=== PATIENT | female | born 1990 | race Caucasian/White ===

== ENCOUNTER 2022-01-20 21:22 | Emergency (ER) | payer BC, SELFPAY ==
[2022-01-20 21:31] VITALS: BP 150/80; PULSE 79; RESP 21; TEMP 36.5; O2SAT 98; BMI 23.0
--- NOTE | 2022-01-20 22:17 | PC.NURSE ---
I asked patient to get a urine sample. patient ambulated to the bathroom with steady gait but was unsuccessful. patient back in bed. provider aware.
--- NOTE | 2022-01-20 22:18 | ED.ABDPAIN ---
HPI - Abdominal Pain General Chief Complaint: Abdominal Pain Stated Complaint: Pelvic Pain Time Seen by Provider: 01/20/22 22:13 Source: patient Mode of arrival: Ambulatory History of Present Illness HPI narrative: 31-year-old female nonsmoker with extensive history of ovarian troubles including multiple surgeries for ovarian torsion when she still lived in [place] presents with her significant other and a chief complaint of significant and worsening left lower quadrant pain over the course of the day. She denies any fever or chills but has had nausea, poor appetite multiple episodes of vomiting and severe pain. The pain is persistent and is worse when she moves and improves with rest. She denies runny nose, sore throat or cough. She is had no chest pain or shortness of breath. She denies any vaginal bleeding or discharge. She states that she has an inability to urinate over the same timeframe. She had been seen and evaluated earlier in the day at an outside facility and had a very thorough evaluation including ultrasound that shows a left side ovarian cyst without evidence of torsion as well as urinary retention. She had a catheter placed but it was removed prior to her discharge and over the course of the day she is had ongoing difficulty producing urine. She had been given anti-inflammatories and pain meds but states they are not helping hence decision to come see us. Related Data Previous Rx's Medication Instructions Recorded ciprofloxacin HCl 500 mg tablet 500 mg PO Q12H #20 tabs 01/21/22 ketorolac 10 mg tablet 10 mg PO Q6H PRN pain #14 tabs 01/21/22 metronidazole 500 mg tablet 500 mg PO Q8H 10 days #30 tabs 01/21/22 ondansetron 4 mg disintegrating 4 mg PO TID-QID PRN nausea and 01/21/22 tablet vomiting #10 tabs oxycodone 5 mg tablet 5 mg PO Q4-6H PRN pain #10 tabs 01/21/22 Allergies Allergy/AdvReac Type Severity Reaction Status Date / Time amoxicillin [From Augmentin] Allergy Verified 01/20/22 22:46 clavulanic acid Allergy Verified 01/20/22 22:46 [From Augmentin] fentanyl Allergy Verified 01/20/22 22:46 hexachlorophene Allergy Verified 01/20/22 22:46 [From Septisol] povidone-iodine Allergy Verified 01/20/22 22:46 [From Septisol] Review of Systems Review of Systems Narrative: GENERAL: See HPI HEENT: Denies sinus pain, ear pain, sore throat, difficulty swallowing, dizziness. RESPIRATORY: Denies dyspnea, cough, wheezing, hemoptysis, sputum. CARDIOVASCULAR: Denies chest pain, palpitations, orthopnea, edema, GASTROINTESTINAL: See HPI : See HPI MUSCULOSKELETAL: denies weakness, joint pain, or bony pain SKIN: Denies rash, skin lesions, or other NEUROLOGIC: Denies weakness, headache, numbness, change in speech, confusion, seizures, incoordination. PSYCHIATRIC: No concerning psychosocial issues. 12 point review of systems is negative except for those stated above Patient History Social History Smoking Status: Never smoker Smoking Status: Never smoker alcohol intake frequency: 0-2 drinks per day Substance Use Type: does not use Exam Narrative Exam Narrative: GENERAL: [31] year old patient appears stated age. Well-developed patient, in mild distress. Obviously uncomfortable, in pain and rubbing her lower abdomen HEAD: Atraumatic. Normocephalic. EYES: Pupils equal round and reactive. Extraocular motions intact. No scleral icterus. No injection or drainage. ENT: Nose without bleeding, purulent drainage. Throat without erythema, tonsillar hypertrophy or exudate. Airway patent. NECK: Trachea midline. Non tender CARDIOVASCULAR: Regular rate and rhythm without murmurs, gallops, or rubs. RESPIRATORY: Clear to auscultation. Breath sounds equal bilaterally. No wheezes, rales, or rhonchi. GASTROINTESTINAL: Abdomen soft, tender in the left lower quadrant and suprapubic region with localized guarding, remainder of abdomen is soft and nontender with bowel sounds present, nondistended. EXTREMITIES: No edema or joint tenderness. BACK: Nontender without deformity or crepitance. No flank tenderness. NEURO: AOx3. SKIN: No rash or erythema of visible areas Initial Vital Signs Initial Vital Signs: Vital Signs Temperature 97.7 F 01/20/22 21:31 Pulse Rate 79 01/20/22 21:31 Respiratory Rate 21 01/20/22 21:31 Blood Pressure 150/80 H 01/20/22 21:31 Pulse Oximetry 98 01/20/22 21:31 Oxygen Delivery Method 01/20/22 21:31 Course Course Course Narrative: Patient unable to produce urine, bedside ultrasound notes greater than 300 cc of urine Orders Ordered: ED Orders 01/20/22 22:25 US pelvic complete Stat 01/20/22 22:45 VBG [Venous Blood Gas] Stat 01/20/22 22:46 Complete Blood Count AUTO DIFF Stat Comprehensive Metabolic Panel Stat Ketones (Beta-Hydroxybutyrate) Stat Lipase Stat 01/20/22 23:14 Test Urine Stat Urinalysis and Microscopic Stat 01/20/22 23:31 CT abdomen pelvis w con Stat Discontinued Medications Hydromorphone HCl (Hydromorphone 0.5 Mg Inj) 0.5 mg IV NOW ONE Stop: 01/20/22 22:26 Last Admin: 01/20/22 22:48 Dose: 0.5 mg Documented By: TUCKER Hydromorphone HCl (Hydromorphone 0.5 Mg Inj) 0.5 mg IV NOW ONE Stop: 01/21/22 01:04 Last Admin: 01/21/22 01:05 Dose: 0.5 mg Documented By: HANY Hydromorphone HCl (Hydromorphone 0.5 Mg Inj) 0.5 mg IV NOW ONE Stop: 01/21/22 02:04 Last Admin: 01/21/22 02:12 Dose: 0.5 mg Sodium Chloride (Normal Saline 0.9%) 1,000 mls @ 1,000 mls/hr IV BOLUS ONE Stop: 01/20/22 23:24 Last Admin: 01/20/22 22:50 Dose: Not Given Documented By: TUCKER Lactated Ringer's (Lactated Ringers) 1,000 mls @ 1,000 mls/hr IV BOLUS ONE Stop: 01/20/22 23:24 Last Infusion: 01/20/22 23:21 Dose: 1,000 mls/hr Documented By: Infusion: 01/20/22 22:59 Dose: 0 mls/hr Documented By: Admin: 01/20/22 22:49 Dose: 1,000 mls/hr Documented By: TUCKER Lactated Ringer's (Lactated Ringers) 1,000 mls @ 1,000 mls/hr IV BOLUS ONE Stop: 01/21/22 01:04 Last Admin: 01/21/22 01:05 Dose: 1,000 mls/hr Documented By: EB Ondansetron HCl (Ondansetron 4 Mg/2 Ml Inj) 4 mg IV NOW ONE Stop: 01/20/22 22:26 Last Admin: 01/20/22 22:48 Dose: 4 mg Documented By: TUCKER Ondansetron HCl (Ondansetron 4 Mg Odt Prepack) 1 bottle MISC SEEINSTR ONE Stop: 01/21/22 02:04 Last Admin: 01/21/22 02:12 Dose: 1 bottle Oxycodone/Acetaminophen (Oxycodone/Apap 5/325 Prepack) 1 bottle MISC SEEINSTR ONE Stop: 01/21/22 02:04 Last Admin: 01/21/22 02:12 Dose: 1 bottle Consultations Consultation #1: Discussed with on-call spout worker early in the presentation, we sure the opinion that a repeat ultrasound and labs are pertinent as well as CT with IV contrast following. He took her contact information and provided there is no surgical finding tonight his office will reach out tomorrow and get her in for prompt follow-up Vital Signs Vital signs: Vital Signs - 8 hr 01/20/22 21:31 01/20/22 22:59 01/20/22 23:00 Temperature 97.7 F Pulse Rate 79 74 76 Respiratory Rate 21 Blood Pressure 150/80 H Pulse Oximetry 98 99 99 Oxygen Delivery Method Room Air MDM - Abdominal Pain Lab Data Result diagrams: 01/20/22 22:46 01/20/22 22:46 Labs: Lab Results 01/20/22 01/20/22 01/20/22 Range/Units 22:45 22:46 22:46 WBC 8.2 (4.5-11.0) X10^3/uL RBC 4.16 (4.0-5.2) X10^6/uL Hgb 12.6 (12.0-16.0) g/dL Hct 37.4 (36-46) % MCV 90.0 (80-100) fL MCH 30.4 (26-34) PG MCHC 33.7 (30-36) % RDW 13.4 (11.6-14.8) % Plt Count 306 (150-400) X10^3/uL Neut % (Auto) 76.2 H (50-75) % Lymph % (Auto) 18.2 L (25-40) % Emanuel % (Auto) 4.4 (3-14) % Eos % (Auto) 0.6 L (2-4) % Baso % (Auto) 0.6 (0-2) % Neut # (Auto) 6200 (8175-5369) /uL Lymph # (Auto) 1500 (4493-9542) /uL Emanuel # (Auto) 400 (0-900) /uL Eos # (Auto) 100 (0-450) /uL Baso # (Auto) 100 (0-100) /uL VBG pH 7.32 L (7.33-7.43) VBG pCO2 39.7 L (45-50) mmHg VBG pO2 25 L (35-45) mmHg VBG HCO3 20 L (23-28) mmol/L VBG Total CO2 22 L (24-29) mmol/L VBG O2 Saturation 41 L (70-75) % VBG Base Excess -6.0 L (0-4) mmol/L Sodium (137-145) mmol/L Potassium (3.4-5.1) mmol/L Chloride (98-107) mmol/L Carbon Dioxide (22-32) mmol/L BUN (7-17) mg/dL Creatinine (0.52-1.04) mg/dL Estimated GFR (>60) mL/min BUN/Creatinine Ratio (6-22) Glucose (70-100) mg/dL Calcium (8.4-10.2) mg/dL Total Bilirubin (0.2-1.3) mg/dL AST (14-36) IU/L ALT (<35) IU/L Alkaline Phosphatase (38-126) U/L Total Protein (6.3-8.2) g/dL Albumin (3.5-5.0) g/dL Globulin (1.7-4.1) g/dL Albumin/Globulin Ratio (1.0-2.8) Lipase (23-300) U/L Urine Color Urine Appearance Urine pH (4.5-8.0) Ur Specific Danielson (1.000-1.035) Urine Protein (Negative) Urine Glucose (UA) (Negative) g/dL Urine Ketones (NEGATIVE) Urine Occult Blood (Negative) Urine Nitrate (Negative) Urine Bilirubin (NEGATIVE) Urine Urobilinogen (0.2) E.U./dL Ur Leukocyte Esterase (NEGATIVE) Urine RBC (0-5/HPF) Urine WBC (0-5/HPF) Ur Squamous Epith Cells (0-5/HPF) Urine Bacteria (None) Hyaline Casts (None) Urine Mucus (Negative) Ur Culture Indicated? Urine Test (Negative) Ketones 5.76 H (<0.27) mmol/L 01/20/22 01/20/22 01/20/22 Range/Units 22:46 23:14 23:14 WBC (4.5-11.0) X10^3/uL RBC (4.0-5.2) X10^6/uL Hgb (12.0-16.0) g/dL Hct (36-46) % MCV (80-100) fL MCH (26-34) PG MCHC (30-36) % RDW (11.6-14.8) % Plt Count (150-400) X10^3/uL Neut % (Auto) (50-75) % Lymph % (Auto) (25-40) % Emanuel % (Auto) (3-14) % Eos % (Auto) (2-4) % Baso % (Auto) (0-2) % Neut # (Auto) (2808-5175) /uL Lymph # (Auto) (4735-8311) /uL Emanuel # (Auto) (0-900) /uL Eos # (Auto) (0-450) /uL Baso # (Auto) (0-100) /uL VBG pH (7.33-7.43) VBG pCO2 (45-50) mmHg VBG pO2 (35-45) mmHg VBG HCO3 (23-28) mmol/L VBG Total CO2 (24-29) mmol/L VBG O2 Saturation (70-75) % VBG Base Excess (0-4) mmol/L Sodium 135 L (137-145) mmol/L Potassium 4.1 (3.4-5.1) mmol/L Chloride 103 (98-107) mmol/L Carbon Dioxide 19 L (22-32) mmol/L BUN 6 L (7-17) mg/dL Creatinine 0.58 (0.52-1.04) mg/dL Estimated GFR > 60 (>60) mL/min BUN/Creatinine Ratio 10.3 (6-22) Glucose 123 H (70-100) mg/dL Calcium 8.9 (8.4-10.2) mg/dL Total Bilirubin 0.6 (0.2-1.3) mg/dL AST 23 (14-36) IU/L ALT 11 (<35) IU/L Alkaline Phosphatase 34 L (38-126) U/L Total Protein 6.7 (6.3-8.2) g/dL Albumin 4.3 (3.5-5.0) g/dL Globulin 2.4 (1.7-4.1) g/dL Albumin/Globulin Ratio 1.8 (1.0-2.8) Lipase 42 (23-300) U/L Urine Color Yellow Urine Appearance Clear Urine pH 5.0 (4.5-8.0) Ur Specific Danielson >=1.030 H (1.000-1.035) Urine Protein 1+ H (Negative) Urine Glucose (UA) Negative (Negative) g/dL Urine Ketones 3+ H (NEGATIVE) Urine Occult Blood Negative (Negative) Urine Nitrate Negative (Negative) Urine Bilirubin Negative (NEGATIVE) Urine Urobilinogen 0.2 (0.2) E.U./dL Ur Leukocyte Esterase Negative (NEGATIVE) Urine RBC None seen (0-5/HPF) Urine WBC 0-1/hpf (0-5/HPF) Ur Squamous Epith Cells 1-5 /hpf (0-5/HPF) Urine Bacteria Occasional (0-1) (None) Hyaline Casts 0-1/lpf (None) Urine Mucus 1+ H (Negative) Ur Culture Indicated? Cult not indicated Urine Test Negative (Negative) Ketones (<0.27) mmol/L Imaging Data US - DISPLAYER: Radiologist's Impression: [address] [id number] ReportSigned Patient: Mattie Caba JMR#: [id number]: 05/28/1996Acct:[id number]/Sex: 25 / FDate of Service: 01/20/22Loc: EDAccession Number: [id number] Procedure: US abdomen limited Ordering Provider: Darell Rose D.O. PROCEDURE: US ABDOMEN LIMITED INDICATIONS: severe epigastric pain, radiation to back TECHNIQUE: Real-time scanning was performed of the abdominal and retroperitoneal organs, with image documentation. COMPARISON: None. FINDINGS: Liver: Liver is enlarged and measures 22.6 cm in length. Diffusely increased liver parenchymal echotexture is seen. No discrete hepatic lesion. Gallbladder: There is no gallstone. No gallbladder wall thickening or pericholecystic fluid. No sonographic Frances sign. Biliary ducts: Intrahepatic bile ducts are non-dilated. Extrahepatic bile duct caliber measures 5.6 mm. Normal is 6-7 mm or less in diameter, or 10 mm or less post-cholecystectomy. Pancreas: Visualized portions of the pancreas are sonographically normal. IMPRESSION: Normal appearing gallbladder. No cholelithiasis or acute cholecystitis. No biliary ductal dilatation. Hepatomegaly and hepatic steatosis. No discrete hepatic lesion. Dictated by: Ismael Nguyen M.D. on 01/20/2022 at 23:12 Approved by: Ismael Nguyen M.D. on 01/20/2022 at 23:14 CT scan - abdomen/pelvis: Radiologist's Impression: 36 ? Darell Rose, DO [facility] Routine Call Back Main ED ?6? My List ?6? Waiting ?0? Surge ED ?0? R04? Dwaine? Ros? 31 F? With Doctor? 4h 25m? 3-Urgent? ?? Abdominal Pain? Pelvic Pain? ?? 01/20/22 22:13? REG ER? Draft? Darell Sommer S Order BP Pulse 76 Resp Temp O2 Sat 99% ... ?Urinalysis... ?Complete B... ?Venous Blo... ?Chem ?Ketones (B... Lipase Sta... Imaging MAR NPO Diet Cardiac mo... POC/DELFINA R05? Dawkins? Raya? 64 F? Pending Xfer to Other Facility? 7h 50m? 2-Emergent? ?? GI Bleed? ABD distended, Bleeding issues, ABD PAIN? ?? 01/20/22 18:08? REG ER? Draft? Darell Sommer Tj Roberts (mom)-[phone]-patient okayed to give information to if she calls for an update Order BP 117/72 Pulse 85 Resp Temp O2 Sat COVID19 -N... ?Chem ?Lactate (L... ?Magnesium ... ?Prothrombi... ?Complete B... ?Lipase Sta... Type and S... Imaging ?Urinalysis... ?Hemoglobin... Albumin Manny... Cell Count... Glucose Manny... LDH Body F... Total Prot... Amylase Manny... Microbiolo... MAR POC/DELFINA EKG-12 Emily... R07? Pedro Pinedaree? Zoila? 18 F? With Doctor? 4h 14m? 3-Urgent? ?? Abdominal Pain? ABD PAIN, HX OVARIAN CYST? C19S/S? 01/20/22 22:31? REG ER? Draft? Darell Butler CT abd/pel if neg then pelvic TRAMAINE 0027 Order BP 123/68 Pulse 91 Resp 18 Temp O2 Sat 98% (RA) ?Complete B... ?Chem Lipase Sta... POC/DELFINA Imaging EKG-12 Emily... Cardiac mo... NPO Diet R08? Richard? Chalo? 85 M? Boarding? 21h 18m? 2-Emergent? ?? Shortness of Breath/Dyspnea? SOB? ISO, C19S/S, Sign Out? 01/20/22 04:29? REG ER? Draft? Darell Butler Check with Pop after 0800 01/21 (no bed tonight) No longer on warfarin BG 185 3L O2 applied Order BP Pulse 54 Resp 24 Temp O2 Sat 98% ?COVID19 -N... ?Complete B... ?Chem ?NT-proBNP ... ?Troponin &... Imaging ?Arterial B... Procalcito... Lactate (L... ?Arterial B... ?Arterial B... ?Arterial B... ?Arterial B... ?Prothrombi... MAR EKG-12 Emily... Microbiolo... BiPAP Vent... Renal Diet RT Consult... R10? Severino? Trevin Shin? 28 M? With Doctor? 42m? 2-Emergent? ?? Psychiatric Symptoms? mental crisis/private/wants to speak w/dr? ?? 01/21/22 01:09? REG ER? Draft? Darell Rose Order BP 135/85 Pulse 111 Resp 22 Temp 98.4 F O2 Sat 98% (RA) Ethanol (E... Complete B... Chem Urine Drug... EKG-12 Emily... POC/DELFINA COVID19 -N... R13? Kayla? Lexus? 60 F? With Doctor? 5h 22m? 3-Urgent? ?? Psychiatric Symptoms? Emotional breakdown? ?? 01/20/22 21:52? REG ER? Draft? Darell Rose [employer] Order BP 147/90 Pulse 118 Resp 22 Temp 98.6 F O2 Sat 93% (RA) ?Complete B... ?Ethanol (E... ?Chem ?Urine Drug... POC/DELFINA MAR Consult to... Imaging - CT abdomen pelvis w con; US pelvic complete Ros Isidro??31??F??1990 ? Allergy/Adv: amoxicillin, clavulanic acid, fentanyl, hexachlorophene, povidone-iodine (More??) Close Results Imaging ACTIVITY DATE EXAM STATUS AUTHOR 01/20/22 23:31 Abdomen/Pelvis CT Signed Ismael Nguyen 01/20/22 22:25 Pelvis Ultrasound Signed Ismael Nguyen Imaging Reports Close Abdomen/Pelvis CT (Signed) Ismael Nguyen - 01/20/22 Pelvis Ultrasound (Signed) Ismael Nguyen - 01/20/22 Launch?[place] [address] CT Scan Report Signed Patient: Ros Isidro MR#: [id number] : 1990 Acct:[id number] Age/Sex: 31 / F Date of Service: 01/20/22 Loc: ED Accession Number: [id number] ?? Procedure: CT abdomen pelvis w con Ordering Provider: Darell Rose D.O. PROCEDURE:? CT ABDOMEN PELVIS W CON ? INDICATIONS:? severe LLQ pain ? TECHNIQUE:? After the administration of intravenous contrast, axial sections acquired from the lung bases to the pubic symphysis.? Coronal and sagittal reformats were performed.? For radiation dose reduction, the following was used:? automated exposure control, adjustment of mA and/or kV according to patient size.? ? COMPARISON:? [facility], , PELVIC COMPLETE, 01/20/2022, 22:54. ? FINDINGS:? Image quality:? Excellent.? ? Lung bases:? Unremarkable. Heart:? No significant findings. ? ABDOMEN: Liver:? Unremarkable.? ? Gallbladder:? A surgical clip is seen in the region of gallbladder fossa although there appears to be a normal appearing gallbladder.? Clinical correlation is recommended.? Biliary ducts:? Unremarkable.? ? Pancreas:? Unremarkable.? ? Spleen:? Unremarkable.? ? Adrenal Glands:? Unremarkable.? ? Kidneys and Ureters:? Unremarkable.? ? ? Stomach and Bowel:? There is no bowel obstruction.? Questionable gastric and proximal small bowel wall thickening in upper to mid abdomen is seen.? There is also suggestion of descending colon wall thickening with narrowing of the lumen and mild pericolonic fat stranding.? Appendix is visualized in right lower quadrant abdomen and is normal in size and appearance.? Significant fecal stasis in ascending colon and transverse colon is noted.? No discrete abscess collection.? Peritoneum:? Small amount of free fluid is noted in abdomen and pelvis.? No gross free air. ? Ventral Wall: ? No hernias.? Abdominal Nodes:? No retroperitoneal or mesenteric adenopathy by size criteria.? Vessels:? Aorta and inferior vena cava are normal in size.? ? PELVIS: Pelvic Organs:? Enlarged left ovary is again seen which was also noted on ultrasound examination.? Suggestion of bilateral ovarian follicles are noted.? Uterus is within normal limits..? ? Bladder:? Donis catheter is seen within bladder lumen, bladder wall thickness is normal. Pelvic Nodes: No enlarged lymph nodes.? Miscellaneous: No hernias are seen. ? ? ? Bones:? No suspicious bony lesion.? No acute vertebral body compression fracture. ? ? IMPRESSION:? 1.? Descending colon wall thickening and edema concerning for infectious or inflammatory colitis.? Questionable gastric and proximal small bowel wall thickening, low-grade gastroenteritis cannot be excluded.? Small amount of free fluid in abdomen and pelvis.? No gross free air. 2. Enlarged left ovary compared to right side which was also seen on ultrasound.? Bilateral ovarian follicles.? No evidence of ovarian torsion is noted on earlier pelvic ultrasound study.? Ultrasound follow-up is recommended. 3. Surgical clip is seen in gallbladder fossa although there is suggestion of a normal appearing gallbladder.? Clinical correlation is recommended.? No biliary ductal dilatation.? ? ? Dictated by: Ismael Nguyen M.D. on 01/21/2022 at 1:26 ? ? Approved by: Ismael Nguyen M.D. on 01/21/2022 at 1:38 ? MDM Narrative Medical decision making narrative: Multiple etiologies for patient's symptoms considered include, but not limited to: [Ovarian torsion (given her history) versus ovarian cyst versus urinary retention versus other Patient has had two pelvic US demonstrating good flow and no evidence of torsion. Patient has had donis placed for post void residual of >300mL CT demonstrates colitis. Patient's symptoms improved over duration of stay with above-stated therapies. History, physical exam, labs, imaging, and response to therapies have been reassuring. Findings and discharge diagnosis discussed with patient/family followed by verbalization of understanding Return precautions discussed with patient/family whom verbalize understanding. Pain has been well controlled and patient is tolerating oral hydration. Discharge Plan Departure Patient Disposition: Home Clinical Impression: Colitis, Acute urinary retention, Ovarian cyst Instructions: DI for Ovarian Cyst, DI for Urinary Retention in Women, DI for Colitis Activity Restrictions/Additional Instructions: *You have been diagnosed with [left lower quadrant abdominal pain due to colitis, urinary retention and ovarian cyst. There is no evidence of ovarian torsion based on our ultrasound or the 1 earlier in the day] *What to do: *Please continue to take your regular medications as directed. [x ] New medication prescriptions sent to your pharmacy: [ [facility] in [place]] FOR URINARY RETENTION -please contact local urology (Dr. Zambrano and Dr. Landry) at the number listed below. Please call their office tomorrow and let them know you were seen in the emergency department and we ask that he be seen in follow-up FOR OVARIAN PAIN -please contact Dr. Lozada, who is the asic engineer on-call [facility], his contact information is listed below. Please contact the office tomorrow, let them know you were seen in the emergency department and we would like you to be seen in follow-up FOR OVERALL MANAGEMENT AND COLITIS - *Please follow up with your primary care provider in 2-3 days, call for an appointment. Let them know you were seen in the Emergency Department and that we ask that you be seen in follow up. We will electronically transmit a record of today's note if your PCP is in our system *Please consider a clear liquid diet for the next 24-48 hours and then slowly advance to regular as tolerated. Also, try to avoid alcohol, nicotine, caffeine, spicy, acidic or fatty foods as this may worsen your symptoms *If you do not have a primary care provider please contact the [facility] Resource line at [phone]. They will ask some questions about your medical history and help get you set up with a doctor in the community. *Return to Emergency Department if you should have any new, worsening or concerning symptoms, such as [fever greater than 101 F, shaking chills, worsening pain, persistent vomiting or other bothersome symptoms] Prescriptions: New ketorolac 10 mg tablet 10 mg PO Q6H PRN (Reason: pain) Qty: 14 0RF ondansetron 4 mg tablet,disintegrating 4 mg PO TID-QID PRN (Reason: nausea and vomiting) Qty: 10 0RF oxycodone 5 mg tablet 5 mg PO Q4-6H PRN (Reason: pain) Qty: 10 0RF ciprofloxacin HCl 500 mg tablet 500 mg PO Q12H Qty: 20 0RF metronidazole 500 mg tablet 500 mg PO Q8H 10 Days Qty: 30 0RF Referrals: Margaret Zambrano MD [Physician] - Hector Lozada MD [Physician] -
--- NOTE | 2022-01-20 22:25 | DI.US.S_ITS ---
PROCEDURE: US PELVIC COMPLETE INDICATIONS: LLQ pain TECHNIQUE: Real-time scanning was performed of the pelvic organs, with image documentation. Additional endovaginal scanning was necessary due to incomplete visualization of the adnexal and endometrial structures by transabdominal scanning. COMPARISON: None. FINDINGS: Uterus: Uterus is anteverted and normal in size at 8.2 x 2.5 x 4.4 cm. The myometrium is homogeneous. No discrete uterine fibroids. The endometrium measures 7.8 mm combined thickness. No gross endometrial mass or fluid is seen. Ovaries: The right ovary measures 4 x 2.5 x 2.2 cm, with a calculated ovarian volume of 11.4 cc. The left ovary measures 6.3 x 5.1 x 6.0 cm, with a calculated ovarian volume of 100.2 cc. The ovaries have a normal sonographic appearance. Less than 12 follicles can be seen in each ovary. No adnexal masses are seen. Normal arterial and venous flow is seen in bilateral ovaries on color Doppler images. Other: No pathologic free abdominal or pelvic fluid. IMPRESSION: 1. No evidence of ovarian torsion. No solid appearing ovarian lesion. 2. Normal appearing uterus and endometrium. We strive to produce accurate, complete, and clear reports of imaging services. To assist us in improving patient care, this report was composed using standard report templates and voice recognition software. Therefore, it may contain abnormal punctuation, insertions and/or omissions. Occasional wrong-word or sound-alike substitutions may occur. Though we review the report and make efforts to correct it, we do recommend that the report be read carefully in proper context to recognize any text inaccuracies. Dictated by: Ismael Nguyen M.D. on 01/20/2022 at 23:37 Approved by: Ismael Nguyen M.D. on 01/20/2022 at 23:38
[2022-01-20] MEDS: ONDANSETRON 4 MG/2 ML INJ IV (22:48)
[2022-01-20] MEDS: HYDROMORPHONE 0.5 MG INJ IV (22:48)
[2022-01-20] MEDS: LACTATED RINGERS 1,000 ML 1000 ML IV (22:49)
[2022-01-20 22:57] LABS: Add Manual Diff / Slide Review NO; Basophils Absolute Auto 100 /uL (0-100); Basophils Percent Auto 0.6 % (0-2); Eosinophils Absolute Auto 100 /uL (0-450); Eosinophils Percent Auto 0.6 % (2-4); Hematocrit 37.4 % (36-46); Hemoglobin 12.6 g/dL (12.0-16.0); Lymphocytes Absolute Auto 1500 /uL (1100-4500); Lymphocytes Percent Auto 18.2 % (25-40); Mean Corpuscular HGB Conc 33.7 % (30-36); Mean Corpuscular Hemoglobin 30.4 PG (26-34); Monocytes Absolute Auto 400 /uL (0-900); Monocytes Percent Auto 4.4 % (3-14); Neutrophils Absolute Auto 6200 /uL (1500-7000); Neutrophils Percent Auto 76.2 % (50-75); Platelet Count 306 X10^3/uL (150-400); Red Blood Cell Count 4.16 X10^6/uL (4.0-5.2); Red Cell Distribution Width 13.4 % (11.6-14.8); White Blood Cell Count 8.2 X10^3/uL (4.5-11.0)
[2022-01-20 22:59] VITALS: PULSE 74; O2SAT 99
[2022-01-20 23:00] VITALS: PULSE 76; O2SAT 99
[2022-01-20 23:03] LABS: HCO3 VBG 20 mmol/L (23-28); Oxygen Saturation VBG 41 % (70-75); PCO2 VBG 39.7 mmHg (45-50); PO2 VBG 25 mmHg (35-45); Total CO2 VBG 22 mmol/L (24-29); pH VBG 7.32 (7.33-7.43)
[2022-01-20 23:10] LABS: Alanine Aminotransferase 11 IU/L (<35); Albumin 4.3 g/dL (3.5-5.0); Albumin Globulin Ratio 1.8 (1.0-2.8); Alkaline Phosphatase 34 U/L (38-126); Aspartate Aminotransferase 23 IU/L (14-36); BUN Creatinine Ratio 10.3 (6-22); Bilirubin Total 0.6 mg/dL (0.2-1.3); Blood Urea Nitrogen 6 mg/dL (7-17); Calcium 8.9 mg/dL (8.4-10.2); Carbon Dioxide 19 mmol/L (22-32); Chloride 103 mmol/L (98-107); Estimated Glomerular Filt Rate > 60 mL/min (>60); Globulin 2.4 g/dL (1.7-4.1); Glucose 123 mg/dL (70-100); HEMOLYSIS < 15 (0-50); Lipase 42 U/L (23-300); Potassium 4.1 mmol/L (3.4-5.1); Sodium 135 mmol/L (137-145); Total Protein 6.7 g/dL (6.3-8.2)
[2022-01-20 23:13] LABS: Ketones (Beta-Hydroxybutyrate) 5.76 mmol/L (<0.27)
[2022-01-20 23:30] VITALS: PULSE 74; O2SAT 97
[2022-01-20 23:30] LABS: Pregnancy Test Urine Negative (Negative)
[2022-01-20 23:31] LABS: Appearance Urine UA CLEAR; Bilirubin Urine UA NEGATIVE (NEGATIVE); Color Urine UA YELLOW; Glucose Urine UA NEGATIVE (Negative); Ketones Urine UA 3+ (NEGATIVE); Leukocyte Esterase Urine UA NEGATIVE (NEGATIVE); Nitrite Urine UA NEGATIVE (Negative); Occult Blood Urine UA NEGATIVE (Negative); Protein Urine UA 1+ (Negative); Specific Gravity Urine UA >=1.030 (1.000-1.035); Urobilinogen Urine UA 0.2 E.U./dL (0.2)
--- NOTE | 2022-01-20 23:31 | DI.CT.S_ITS ---
PROCEDURE: CT ABDOMEN PELVIS W CON INDICATIONS: severe LLQ pain TECHNIQUE: After the administration of intravenous contrast, axial sections acquired from the lung bases to the pubic symphysis. Coronal and sagittal reformats were performed. For radiation dose reduction, the following was used: automated exposure control, adjustment of mA and/or kV according to patient size. COMPARISON: [facility], US, US PELVIC COMPLETE, 01/20/2022, 22:54. FINDINGS: Image quality: Excellent. Lung bases: Unremarkable. Heart: No significant findings. ABDOMEN: Liver: Unremarkable. Gallbladder: A surgical clip is seen in the region of gallbladder fossa although there appears to be a normal appearing gallbladder. Clinical correlation is recommended. Biliary ducts: Unremarkable. Pancreas: Unremarkable. Spleen: Unremarkable. Adrenal Glands: Unremarkable. Kidneys and Ureters: Unremarkable. Stomach and Bowel: There is no bowel obstruction. Questionable gastric and proximal small bowel wall thickening in upper to mid abdomen is seen. There is also suggestion of descending colon wall thickening with narrowing of the lumen and mild pericolonic fat stranding. Appendix is visualized in right lower quadrant abdomen and is normal in size and appearance. Significant fecal stasis in ascending colon and transverse colon is noted. No discrete abscess collection. Peritoneum: Small amount of free fluid is noted in abdomen and pelvis. No gross free air. Ventral Wall: No hernias. Abdominal Nodes: No retroperitoneal or mesenteric adenopathy by size criteria. Vessels: Aorta and inferior vena cava are normal in size. PELVIS: Pelvic Organs: Enlarged left ovary is again seen which was also noted on ultrasound examination. Suggestion of bilateral ovarian follicles are noted. Uterus is within normal limits.. Bladder: [place] catheter is seen within bladder lumen, bladder wall thickness is normal. Pelvic Nodes: No enlarged lymph nodes. Miscellaneous: No hernias are seen. Bones: No suspicious bony lesion. No acute vertebral body compression fracture. IMPRESSION: 1. Descending colon wall thickening and edema concerning for infectious or inflammatory colitis. Questionable gastric and proximal small bowel wall thickening, low-grade gastroenteritis cannot be excluded. Small amount of free fluid in abdomen and pelvis. No gross free air. 2. Enlarged left ovary compared to right side which was also seen on ultrasound. Bilateral ovarian follicles. No evidence of ovarian torsion is noted on earlier pelvic ultrasound study. Ultrasound follow-up is recommended. 3. Surgical clip is seen in gallbladder fossa although there is suggestion of a normal appearing gallbladder. Clinical correlation is recommended. No biliary ductal dilatation. Dictated by: Ismael Nguyen M.D. on 01/21/2022 at 1:26 Approved by: Ismael Nguyen M.D. on 01/21/2022 at 1:38
[2022-01-20 23:35] LABS: Bacteria Urine Occasional (0-1); Hyaline Casts Urine 0-1/LPF; Mucus Urine 1+ (Negative); RBC Urine None Seen (0-5/HPF); Squamous Epithelial Cell Urine 1-5 /HPF (0-5/HPF); WBC Urine 0-1/HPF (0-5/HPF)
[2022-01-20 23:36] LABS: Culture Indicated Urine Cult Not Indicated
[2022-01-21] VITALS: PULSE 73; O2SAT 100
--- NOTE | 2022-01-21 01:00 | PC.NURSE ---
Pt IV infiltrated. Multiple attempts made for new IV placement. IV placed on 4th attempt. Pt CT was obtained, pt asking for pain medications.
[2022-01-21] MEDS: LACTATED RINGERS 1,000 ML 1000 ML IV (01:05)
[2022-01-21] MEDS: HYDROMORPHONE 0.5 MG INJ IV ×2 (01:05→02:12)
[2022-01-21 01:08] VITALS: PULSE 103; RESP 19; O2SAT 97
[2022-01-21 01:30] VITALS: BP 137/81; PULSE 94; RESP 16; O2SAT 100
[2022-01-21 02:00] VITALS: PULSE 92; RESP 20; O2SAT 100
[2022-01-21] MEDS: OXYCODONE/APAP 5/325 PREPACK 1 BOTTLE MISC (02:12)
[2022-01-21] MEDS: ONDANSETRON 4 MG ODT PREPACK 1 BOTTLE MISC (02:12)
== END 2022-01-21 02:31 | disposition home or self-care (01) ==
PROVIDERS: Emergency Provider Emergency Medicine
DX: K52.9 Noninfective gastroenteritis and colitis, unspecified (principal); R33.8 Other retention of urine; N83.202 Unspecified ovarian cyst, left side
CPT/HCPCS: 36415; 51798; 74177; 76856; 80053; 81001; 81025; 82009; 82805; 83690; 85025; 96361; 96374; 96375; 96376; 99284; J1170; J2405; Q9967

== ENCOUNTER → 2022-01-23 15:45 | Outpatient (CLI) | payer BC, SELFPAY | PROVIDERS: Visit Provider Obstetrics & Gynecology | DX: R33.8 Other retention of urine (principal) | CPT/HCPCS: 87086 ==

== ENCOUNTER → 2023-01-20 12:46 | Outpatient (CLI) | payer OTHER, SELFPAY ==
--- NOTE | 2023-01-20 12:47 | DI.US.S_ITS ---
PROCEDURE: US PELVIC COMPLETE INDICATIONS: LEFT SIDE PELVIC PAIN TECHNIQUE: Real-time scanning was performed of the pelvic organs, with image documentation. Additional endovaginal scanning was necessary due to incomplete visualization of the adnexal and endometrial structures by transabdominal scanning. COMPARISON: [facility], US, US PELVIC COMPLETE, 01/20/2022, 22:54. FINDINGS: Uterus: Uterus is anteverted and normal in size at 7.1 x 3.3 x 5.0 cm. The myometrium is homogeneous. The endometrium measures 6 mm combined thickness. Ovaries: The right ovary measures 2.8 x 5.0 x 2.6 cm, with a calculated ovarian volume of 19 cc. The left ovary measures 2.8 x 1.1 x 2.0 cm, with a calculated ovarian volume of 3 cc. The ovaries have a normal sonographic appearance. Greater than 12 follicles in the left ovary, less than 12 in the right ovary. No adnexal masses are seen. Other: No pathologic free abdominal or pelvic fluid. IMPRESSION: Normal sonographic appearance of the left ovary. No evidence of torsion. Polycystic right ovary. We strive to produce accurate, complete, and clear reports of imaging services. To assist us in improving patient care, this report was composed using standard report templates and voice recognition software. Therefore, it may contain abnormal punctuation, insertions and/or omissions. Occasional wrong-word or sound-alike substitutions may occur. Though we review the report and make efforts to correct it, we do recommend that the report be read carefully in proper context to recognize any text inaccuracies. Dictated by: Ryland Rowell M.D. on 01/20/2023 at 13:53 Approved by: Ryland Rowell M.D. on 01/20/2023 at 13:54
== END ==
PROVIDERS: PCP Family Medicine; Referring Provider Obstetrics & Gynecology; Visit Provider Obstetrics & Gynecology
DX: E28.2 Polycystic ovarian syndrome (principal); Z87.42 Personal history of other diseases of the female genital tract
CPT/HCPCS: 76830; 76856; 93975

== ENCOUNTER → 2023-02-28 10:31 | Outpatient (CLI) | payer OTHER, SELFPAY ==
[2023-02-28 11:26] LABS: Hemoglobin A1C% w Est Avg Glu 5.4 % (4.0-6.0)
[2023-02-28 11:33] LABS: Cholesterol 226 mg/dL (140-199); Glucose 144 mg/dL (70-100); HDL Cholesterol 69 mg/dL (40-60); LDL Cholesterol Calculated 145 mg/dL (<100); Triglycerides 58 mg/dL (35-150)
[2023-03-01 08:02] LABS: C Peptide < 0.1 ng/mL (1.1-4.4)
== END ==
PROVIDERS: PCP Family Medicine; Referring Provider Student in an Organized Health Care Education/Training Program; Visit Provider Student in an Organized Health Care Education/Training Program
DX: E10.69 Type 1 diabetes mellitus with other specified complication (principal)
CPT/HCPCS: 36415; 80061; 82947; 83036; 84681